=== PATIENT | female | born 1975 | race Caucasian/White ===

== ENCOUNTER 2016-04-28 | Emergency (ER) | payer OTHER | END 2016-04-28 19:06 | disposition left against medical advice (07) | DX: Z53.21 Procedure and treatment not carried out due to patient leaving prior to being seen by health care provider (principal) ==

== ENCOUNTER → 2021-03-08 | Outpatient (CLI) | payer OTHER ==
[~2021-03-08] MED LIST: AFRIN NASAL SPR30 ML; IBUPROFEN800 MG PO; TYLENOL 325MG325 MG PO
== END ==
LOC: RAD 07:38
DX: M25.852 Other specified joint disorders, left hip (principal); M25.851 Other specified joint disorders, right hip; M24.851 Other specific joint derangements of right hip, not elsewhere classified
CPT/HCPCS: J3301; Q9967